=== PATIENT | female | born 1945 | race Caucasian/White ===

== ENCOUNTER 2018-06-21 10:47 | Day surgery (SDC) | payer MEDICARE, OTHER ==
[2018-06-21] VITALS (7 sets, daily range): BP systolic 118–139; BP diastolic 50–70; PULSE 63–80; TEMP 97.6–98.1
[~2018-06-21] VITALS: Ht 149.9 cm; Wt 53.0 kg
[~2018-06-21 10:47] MED LIST: ASPIRIN E.C. 8181 MG PO; CARTIA XT180 MG PO; CEPHALEXIN500 M1 PO; COZAAR 25MG25 MG/TAB PO; HCTZ 25MG TAB25 MG PO; NORCO 325 MG-51 TAB PO; PRAVACHOL10 MG PO; PRILOSEC 20MG20 MG PO
[2018-06-21 11:38] LABS: HEMATOCRIT 38.3 % (37.0-47.0); HEMOGLOBIN 12.3 g/dl (12.5-16.0); MEAN CELL VOLUME 93 fl (80.0-100.0); MEAN CORPUSCULAR HEMOGLOBIN 30 pg (27.0-31.0); MEAN CORPUSCULAR HGB CONC 32 g/dl (33.0-37.0); MEAN PLATELET VOLUME 9.4 fl (7.4-10.4); PLATELET COUNT 277 K/mm3 (130-400)
[2018-06-21 11:42] LABS: PROTHROMBIN TIME 11.8 SECONDS (9.7-12.8)
[2018-06-21 11:47] LABS: CALCIUM 9.7 mg/dL (8.4-10.2); CREATININE, serum 0.94 mg/dL (0.52-1.25); POTASSIUM 4.2 mmol/L (3.4-5.0)
[2018-06-21] MEDS ORDERED: NATURAL IRON65 MG PO (12:00)
[2018-06-21] MEDS ORDERED: VITAMIN C500 MG PO (12:00)
[2018-06-21] MEDS ORDERED: FOLIC ACID 11 MG/TA1 PO (12:36)
[2018-06-22 00:20] VITALS: BP 114/58; PULSE 60; TEMP 98.5
[2018-06-22 03:56] VITALS: BP 122/75; PULSE 62; TEMP 98.5
[2018-06-22 08:17] VITALS: BP 121/68; PULSE 74; TEMP 98.1
[2018-06-22] MEDS ORDERED: CEPHALEXIN500 M1 PO (09:14)
== END 2018-06-22 11:38 | disposition home or self-care (01) ==
LOC: COL.CAR 10:47 → MEDICAL 18:32 → COL.CAR 06-22 11:38
PROVIDERS: Internal Medicine Cardiovascular Disease
DX: I49.5 Sick sinus syndrome (principal); K21.9 Gastro-esophageal reflux disease without esophagitis; I10 Essential (primary) hypertension; I44.7 Left bundle-branch block, unspecified; M19.90 Unspecified osteoarthritis, unspecified site; G89.29 Other chronic pain; I34.9 Nonrheumatic mitral valve disorder, unspecified; E78.5 Hyperlipidemia, unspecified; Z90.49 Acquired absence of other specified parts of digestive tract; Z88.6 Allergy status to analgesic agent; Z98.51 Tubal ligation status; Z79.82 Long term (current) use of aspirin; Z80.0 Family history of malignant neoplasm of digestive organs
CPT/HCPCS: OP; C1769; C1785; C1894; C1898; J0690; J2250; J3010; J7030